=== PATIENT | male | born 2000 | race Caucasian/White ===

== ENCOUNTER 2020-08-22 15:30 | Emergency (ER) | payer BC, MEDICAID ==
[~2020-08-22] VITALS: Ht 167.6 cm; Wt 78.0 kg
[2020-08-22] MEDS: SODIUM CHLORIDE 0.9% 1,000 ML IV ONE (16:25)
[2020-08-22] MEDS: LORAZEPAM 2MG/ML CPJ IV STA (16:25)
[2020-08-22 16:29] LABS: CHLORIDE 106 mEq/L (98-107)
[2020-08-22 16:35] LABS: ETHANOL BLOOD < 10 mg/dL
[2020-08-22 16:36] LABS: HEMOGLOBIN. 15.4 g/dL (14.0-18.0); MEAN CORPUSCULAR VOLUME 87.4 fL (80.0-94.0); MEAN PLATELET VOLUME 9.3 fl (7.4-10.4); PLATELET 271 x1000/uL (130-400); RED BLOOD CELL COUNT 5.15 mill/uL (4.7-6.1); RED CELL DISTRIBUTION WIDTH 12.8 % (11.6-14.6)
[2020-08-22] MEDS: LORAZEPAM 2MG/ML CPJ IV ONE (17:32)
[2020-08-22] MEDS: HALOPERIDOL LACTATE 5MG/ML VIAL IM ONE (18:17)
[2020-08-22 19:33] LABS: PLATELET ESTIMATE NORMAL
[2020-08-22 22:53] VITALS: BP 115/55
== END 2020-08-23 00:20 | disposition home or self-care (01) ==
LOC: ER 15:30
DX: T43.621A Poisoning by amphetamines, accidental (unintentional), initial encounter (principal); R07.2 Precordial pain; F15.129 Other stimulant abuse with intoxication, unspecified; R25.1 Tremor, unspecified; R00.0 Tachycardia, unspecified; N28.9 Disorder of kidney and ureter, unspecified; R03.0 Elevated blood-pressure reading, without diagnosis of hypertension; Y92.89 Other specified places as the place of occurrence of the external cause
CPT/HCPCS: 36415; 71045; 80053; 80320; 84484; 85025; 93005; 96361; 96372; 96374; 96376; 99285; J1630; J2060; J7030; Z7610; G0480

== ENCOUNTER 2020-08-23 15:26 | Emergency (ER) | payer BC, MEDICAID ==
[~2020-08-23] VITALS: Ht 172.7 cm; Wt 75.0 kg
[2020-08-23] MEDS: IBUPROFEN 600MG TABLET PO ONE (17:15)
[2020-08-23] MEDS ORDERED: LORAZEPAM 0.5MG TABLET PO ONE (17:30)
[2020-08-23] MEDS: BACITRACIN ZINC OINT UDPKT TOP ONE (17:30)
[2020-08-23] MEDS: LORAZEPAM 1MG TABLET PO NR (17:33)
[2020-08-23 19:17] LABS: BASOPHILS % 0.4 % (0.0-2.0); EOSINOPHILS % 0.4 % (0.0-5.0); HEMATOCRIT. 40.9 % (42.0-52.0); HEMOGLOBIN. 14.1 g/dL (14.0-18.0); LYMPHOCYTES % 22.3 % (20.0-50.0); MEAN CORPUSCULAR VOLUME 87.1 fL (80.0-94.0); MEAN PLATELET VOLUME 8.9 fl (7.4-10.4); MONOCYTES % 8.4 % (2.0-8.0); NEUTROPHILS % 68.5 % (40.0-76.0); PLATELET 208 x1000/uL (130-400); RED BLOOD CELL COUNT 4.69 mill/uL (4.7-6.1); RED CELL DISTRIBUTION WIDTH 13.2 % (11.6-14.6)
[2020-08-23 19:24] LABS: CHLORIDE 107 mEq/L (98-107)
[2020-08-23 19:28] LABS: ETHANOL BLOOD < 10 mg/dL
[2020-08-23] MEDS: LORAZEPAM 1MG TABLET PO ONE (19:30)
[2020-08-23 20:47] LABS: CLARITY URINE CLEAR (CLEAR); COLOR URINE YELLOW (YELLOW); KETONES URINE 2+ (NEGATIVE); LEUKOCYTE ESTERASE URINE NEGATIVE (NEGATIVE); NITRITE URINE NEGATIVE (NEGATIVE); OCCULT BLOOD URINE NEGATIVE (NEGATIVE); PH URINE 5.5 (4.5-8.0); PROTEIN URINE TRACE (NEGATIVE); UROBILINOGEN URINE 0.2 E.U./dL (0.2-1.0)
[2020-08-23 21:11] LABS: *AMPHETAMINES SCREEN URINE PRESUMTIVE POSITIVE (NEGATIVE); *BARBITURATES SCREEN URINE NEGATIVE (NEGATIVE); *BENZODIAZEPINES SCREEN URINE NEGATIVE (NEGATIVE); *COCAINE SCREEN URINE NEGATIVE (NEGATIVE)
[2020-08-23 21:12] LABS: CANNABINOID URINE SCREEN NEGATIVE (NEGATIVE); METHADONE URINE SCREEN NEGATIVE (NEGATIVE); OPIATES URINE SCREEN PRESUMTIVE POSITIVE (NEGATIVE); PHENCYCLIDINE URINE SCREEN NEGATIVE (NEGATIVE)
[2020-08-24] MEDS: HALOPERIDOL LACTATE 5MG/ML VIAL IM ONE (01:30)
[2020-08-24] MEDS: DIPHENHYDRAMINE 50MG/ML VIAL IM ONE (01:30)
[2020-08-24] MEDS: LORAZEPAM 2MG/ML CPJ IM ONE (01:30)
[2020-08-24 18:59] VITALS: BP 113/67
== END 2020-08-24 19:00 | disposition home or self-care (01) ==
LOC: ER 15:26
DX: S50.311A Abrasion of right elbow, initial encounter (principal); F15.188 Other stimulant abuse with other stimulant-induced disorder; F16.188 Hallucinogen abuse with other hallucinogen-induced disorder; F11.188 Opioid abuse with other opioid-induced disorder; R44.1 Visual hallucinations; R44.0 Auditory hallucinations; X78.0XXA Intentional self-harm by sharp glass, initial encounter; Z78.1 Physical restraint status; Y93.89 Activity, other specified; Y92.89 Other specified places as the place of occurrence of the external cause
CPT/HCPCS: 36415; 80053; 80305; 80307; 80320; 80329; 81003; 85025; 93005; 96372; 99285; J1200; J1630; J2060; G0480